=== PATIENT | female | born 1970 | race Two or more races ===

== ENCOUNTER 2019-03-21 05:50 | Day surgery (SDC) | payer OTHER ==
[~2019-03-21 05:50] MED LIST: GLIMEPIRIDE2 MG PO; JANUMET 50-1,01 EACH PO; LOSARTAN-HCTZ1 EAC2 PO; [UNRECOGNIZED DRUG - OTHER] PO
== END 2019-03-21 12:00 | disposition home or self-care (01) ==
LOC: CIR.AMB 05:50
DX: D17.23 Benign lipomatous neoplasm of skin and subcutaneous tissue of right leg (principal)